=== PATIENT | female | born 1960 | race Two or more races ===

== ENCOUNTER 2018-11-16 08:03 | Day surgery (SDC) | payer BC ==
[~2018-11-16] VITALS: Ht 160 cm; Wt 46.3 kg
--- NOTE | 2018-11-16 09:50 | NUR ---
11/16/18 0950 Crystal Schaeffer 0938 PATIENT ARRIVES TO PACU SLEEPING, OPENS EYES WITH VERBAL STIMULI, THEN BACK TO SLEEP. RESP EVEN AND UNLABORED, ROOM AIR SATS >95%. 0950 PATIENT STILL SLEEPING. 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
--- NOTE | 2018-11-16 17:24 | OR ---
[facility] [address], [place] [address] Signed DATE OF OPERATION: 11/16/2018 SURGEON: Tru Berrios MD PREOPERATIVE DIAGNOSIS: Guaiac-positive stool. POSTOPERATIVE DIAGNOSES: 1. Minimal sigmoid diverticulosis. 2. Minimal internal hemorrhoids. PROCEDURE: Colonoscopy without biopsy. ESTIMATED BLOOD LOSS: None. INDICATIONS: Dutch is a 58-year-old female, originally from [facility]. She comes as a referral for colonoscopy. Apparently, six guaiac cards all came back positive. She speaks mostly Uzbek, but understands Irish actually pretty well. In the office, I gave her pamphlets on colonoscopy written in Uzbek and we looked at those carefully and gave her sufficient time to read and ask questions. We also gave her our written instructions for the bowel prep written in Uzbek and again we went through that very carefully. She understands the nature of the test along with its risks including, but not limited to gas, bloating, crampy abdominal pain, bleeding, perforation requiring surgery, and missed diagnosis. She also understands the need for IV conscious sedation. She understand she needs an adult person to take her home afterwards. She can return to work or driving in 24 hours. She had expressed understanding and wished to proceed. PROCEDURE NOTE: Dutch was taken into our endoscopy suite and placed in the left lateral decubitus position. She was given IV sedation with 6 mg of Versed and 125 mcg of fentanyl. A digital rectal exam was performed and this was unremarkable. The adult colonoscope was then introduced and advanced under direct visualization of camera. Dutch is slight of build at 5 feet 3 inches, 102 pounds with a body mass index of 18. Nevertheless, she has a fairly long redundant colon relative to her height. It took some extra sedation and abdominal compression coming through the left colon and transverse colon in order to get the scope into the cecum itself. In the end, she did well. Her prep was quite excellent. We could see the appendiceal orifice and the ileocecal valve. The scope was Electronically Signed By: TRU BERRIOS MD 11/16/18 1724 PATIENT NAME: DUTCH GALLOWAY OPERATIVE REPORT DATE OF : 64 REPORT #: [id number] PHYSICIAN: TRU BERRIOS MD PCP: KIKO GOOD MD REPORT IS CONFIDENTIAL AND NOT TO BE RELEASED WITHOUT AUTHORIZATION [facility] [address], [place] [address] Signed slowly withdrawn. Pictures were taken throughout for photodocumentation. She had just a few diverticula in the sigmoid colon. They were quite small and I cannot imagine they are clinically significant. No polyps. The rectum was unremarkable. We had just enough room to retroflex the scope and she has very tiny internal hemorrhoid tissue. After this, the gas was suctioned out. The colonoscope removed. Dutch tolerated procedure well. RECOMMENDATIONS: Dutch can follow up in 10 years for repeat screening colonoscopy. MD DARRION Alves/AHMETL /[id number] cc: MD Kiko Alves MD Copies: TRU BERRIOS MD, RUSSELL BARR MD ~ Electronically Signed By: TRU BERRIOS MD 11/16/18 1724 PATIENT NAME: DUTCH GALLOWAY OPERATIVE REPORT DATE OF : 64 REPORT #: [id number] PHYSICIAN: TRU BERRIOS MD PCP: KIKO GOOD MD REPORT IS CONFIDENTIAL AND NOT TO BE RELEASED WITHOUT AUTHORIZATION
== END 2018-11-16 10:30 | disposition home or self-care (01) ==
LOC: DS 08:03 → OPS 08:03 → DS 08:15 → OPS 10:30
PROVIDERS: Colon & Rectal Surgery
PROC: 0DJD8ZZ Inspection of Lower Intestinal Tract, Via Natural or Artificial Opening Endoscopic (ICD-10-PCS; principal; 2018-11-16 09:15)
DX: K64.8 Other hemorrhoids (principal); K57.30 Diverticulosis of large intestine without perforation or abscess without bleeding
CPT/HCPCS: 99153; G0500; J2250; J3010